=== PATIENT | male | born 1980 | race African-American/Black ===

== ENCOUNTER 2021-07-17 13:58 | Observation (INO) ==
[2021-07-17 14:19] LABS: Basophils # (auto) 0.04 K/uL (0-0.2); Basophils % (auto) 0.5 %; Eosinophils # (auto) 0.18 K/uL (0-0.5); Eosinophils % (auto) 2.3 %; Hematocrit (blood only) 44.1 % (42-52); Hemoglobin 14.7 g/dL (14.0-18.0); Immature Granulocytes # (auto) 0.01 K/uL (0.00-0.02); Immature Granulocytes % (auto) 0.1 %; Lymphocytes # (auto) 2.76 K/uL (1.2-3.4); Lymphocytes % (auto) 35.4 %; Mean Corpuscular Hemoglobin 29.3 pg (25-34); Mean Corpuscular Hgb Conc 33.3 g/dL (32-36); Mean Platelet Volume 10.8 fL (7.4-10.4); Monocytes # (auto) 0.62 K/uL (0.11-0.59); Monocytes % (auto) 7.9 %; Neutrophils # (auto) 4.19 K/uL (1.4-6.5); Neutrophils % (auto) 53.8 %; Platelet Count 230 K/uL (130-400); RDW Standard Deviation 41.7 fL (36.4-46.3); Red Blood Count 5.01 M/uL (4.7-6.1)
[2021-07-17] MEDS ORDERED: NITROGLYCERIN SL 0.4 MG/TAB TAB SL STA (14:30)
[2021-07-17 14:33] LABS: Partial Thromboplastin Time 27.3 Seconds (21.0-31.0); Prothrombin Time 10.3 Seconds (9.0-12.0)
[2021-07-17 14:44] LABS: Alanine Aminotransferase 33 (12-78); Albumin Level 3.7 gm/dl (3.4-5.0); Aspartate Aminotransferase 18 U/L (15-37); BUN Creatinine Ratio 8.3 (10-20); Blood Urea Nitrogen 9 mg/dl (7-18); Carbon Dioxide 26 mmol/L (21-32); Chloride 108 mmol/L (98-107); Est GFR (African American) 95.8 ml/min; Est GFR (Non-African American) 82.7 ml/min; Glucose 106 mg/dl (70-99); Potassium 4.4 mmol/L (3.5-5.1); Sodium 138 mmol/L (136-145)
--- NOTE | 2021-07-17 14:44 | XRay Report ---
XR chest 1V portable CLINICAL HISTORY: Chest Pain. COMPARISON STUDY: No previous studies for comparison. TECHNIQUE: 1 view of the chest FINDINGS: Single frontal view of the chest demonstrates the cardiomediastinal silhouette to be within normal li mits. There is a decreased inspiratory effort with elevation of the hemidiaphragms and crowding of th e bronchovascular markings at the lung bases and centrally. The lungs are clear of alveolar opacities . There is no evidence for pleural effusion. There is no evidence for vascular congestion. There is n o acute osseous pathology. IMPRESSION: There is a decreased inspiratory effort with otherwise no acute chest disease. ACT 112: Negative or not required by law. Electronically signed by: Misael Ya M.D. 07/17/2021 2:43 PM
[2021-07-17 14:47] LABS: Albumin Globulin Ratio 1.1 (0.9-2); Alkaline Phosphatase 42 U/L (45-117); Bilirubin,Total 0.3 mg/dl (0.2-1); Globulin 3.4 gm/dl (2.5-4.0); Total Protein 7.1 gm/dl (6.4-8.2); Troponin I < 0.015 ng/ml (0-0.045)
[2021-07-17 14:53] LABS: D Dimer 250 ug/L FEU (0-500)
--- NOTE | 2021-07-17 14:55 | Emergency Department Note ---
Impression & Plan Atypical chest pain, Abnormal EKG ED Provider Note NAME: BRYANT [id number] JOSE AGE: 41 SEX: M : 1980 ARRIVES VIA: Ambulance INFORMANT: Patient, ED PROVIDER(S): Eduar Tolliver MD Chief Complaint: Chest pain HPI: Patient does present from [facility] due to concern for chest pain that is left-sided and nonradiating. The patient states is worse with inspiration 8 out of 10 in nature. Triage was concerned as the patient's initial EKG read as a possible STEMI. Repeats did show elevation in aVL but not in contiguous leads. Patient denies any obvious exertional symptoms or nausea or vomiting. Patient has no known medical problems with the exception of some constipation does take mirtazapine for sleep. Patient is vaccinated for Covid. He does use tobacco. The patient denies any recent falls or trauma. Patient denies any fevers or chills or leg swelling. No recent surgeries hospitalizations or procedures. The patient is not taking anything for his pain other than the aspirin prior to arrival via EMS. Patient is unsure whether not this improved his symptoms. ROS: See HPI for pertinent positives and negatives. A total of 10 systems were reviewed and otherwise negative. Past medical history: See below Surgical history: See below Social history: See below Physical Exam: GENERAL: NAD, wearing a mask, non-toxic. EYE EXAM: Normal conjunctiva. PERRL, no anisocoria and EOM's grossly intact w/o pain. NECK: Supple, no nuchal rigidity, no adenopathy, non-tender. No signs of meningismus. LUNGS: Clear to auscultation. Normal chest wall mechanics. HEART: NSR, no MRG. ABDOMEN: Abdomen soft, non-tender, normo-active bowel sounds, no masses, no rebound or guarding. BACK: No CVA TTP. SKIN: No rashes and no bruising. UPPER EXTREMITIES: Upper extremities are grossly normal. LOWER EXTREMITIES: Grossly normal, no edema. Negative Homans' sign bilaterally. NEURO EXAM: A&O x3, cranial nerves II-XII grossly intact, normal speech, moves all 4 extremities on command w/o issue. Differential diagnoses: Cardiac ischemia, aortic dissection, pulmonary embolism, pneumothorax, pneumonia, pericarditis, myocarditis, esophageal rupture, GERD, cholecystitis, pancreatitis, musculoskeletal, as well as other pathologies. Course: Patient was seen and evaluated the bedside. Full history physical exam was performed. EKG interpreted by me Normal sinus rhythm, rate of 72, normal intervals, left axis deviation, elevation in aVL but not in contiguous leads. Slight depression in lead III and aVF. Repeat EKG interpreted by me Normal sinus rhythm, rate of 69, normal intervals, left axis deviation, slight elevation in aVL but not in contiguous leads depression in 3 and aVF. Unchanged from comparison EKG completed earlier today. Imaging Studies: See Below Cardiac monitoring: An order was placed for continuous cardiac monitoring. The monitor shows a rate of 78 with sinus rhythm. MDM: Patient did present due to concern for chest pain. The patient did state it was pleuritic in nature. Patient's EKG did show elevation in aVL and depression in 3 but not in contiguous leads. Patient's history does not necessarily centrally cardiac but no prior EKGs for comparison. Old work was obtained and I did have asked that the patient be roomed. The patient was ordered nitro as the patient already received aspirin. Patient has a normal white count H&H and platelet count. Kidney function is unremarkable. Troponin not detectable. D-dimer was also ordered. Chest x-ray does not show any acute disease. The patient did not have significant improvement in his pain after nitro. Toradol and Tylenol were ordered. Given the patient's unknown baseline EKG given the atypical chest pain believe the patient would be reasonable for inpatient observation treatment and trending of cardiac enzymes. I did speak the on-call hospitalist Rosemarie Niño PA-C. The patient was admitted to the medicine service by Dr. Mancia. Past Med/Surg History Medical History (Updated 07/17/21 @ 17:54 by Eduar Tolliver MD) Constipation Sleep trouble Surgical History (Updated 07/17/21 @ 16:41 by Jasmine Niño PA-C) History of ankle surgery Family History (Updated 07/17/21 @ 16:41 by Jasmine Niño PA-C) Mother Diabetes Sister Diabetes Denies family history of Coronary heart disease Social History Smoking Status: Former smoker Tobacco Type: Cigarettes Preferred Language: Belarusian Immunizations: Vaccinated for COVID-19 Allergies Allergies Allergy/AdvReac Type Severity Reaction Status Date / Time No Known Allergies Allergy Unverified 07/17/21 15:59 Home Meds Home Medications Medication Instructions Recorded Confirmed docusate sodium 100 mg capsule 100 mg PO DAILY 07/17/21 07/17/21 ibuprofen 600 mg tablet 600 mg PO TID 07/17/21 07/17/21 mirtazapine 30 mg tablet 30 mg PO HS 07/17/21 07/17/21 Results & Data (ED) Vital Signs Vital Signs - 24 hr 07/17/21 14:04 07/17/21 15:24 Temperature 36.7 C Temperature Source Temporal Artery Scan Pulse Rate 79 Pulse Rate [Apical] 82 Respiratory Rate 18 16 Blood Pressure 139/82 Blood Pressure [Left Arm] 135/90 Blood Pressure Mean 101 Blood Pressure Mean [Left Arm] 105 Pulse Oximetry 96 96 Oxygen Delivery Method Room Air Room Air Sepsis Recent Fever Within 48 Hours No Sepsis New/Unexplained Change in Mental Status No Sepsis Action Taken by Nursing No Action Required Home Medications Current Medication List: was personally reviewed by me Laboratory Data Attestation: I reviewed the patient's lab results. Result diagrams: 07/17/21 14:10 07/17/21 14:10 Lab Results 07/17/21 07/17/21 07/17/21 Range/Units 14:10 14:10 14:10 WBC 7.80 (4.8-10.8) K/uL RBC 5.01 (4.7-6.1) M/uL Hgb 14.7 (14.0-18.0) g/dL Hct 44.1 (42-52) % MCV 88.0 (80-100) fL MCH 29.3 (25-34) pg MCHC 33.3 (32-36) g/dL RDW Std Deviation 41.7 (36.4-46.3) fL RDW Coeff of Marlen 13.0 (11.5-14.5) % Plt Count 230 (130-400) K/uL MPV 10.8 H (7.4-10.4) fL Immature Gran % (Auto) 0.1 % Neut % (Auto) 53.8 % Lymph % (Auto) 35.4 % Rich % (Auto) 7.9 % Eos % (Auto) 2.3 % Baso % (Auto) 0.5 % Neut # (Auto) 4.19 (1.4-6.5) K/uL Lymph # (Auto) 2.76 (1.2-3.4) K/uL Rich # (Auto) 0.62 H (0.11-0.59) K/uL Eos # (Auto) 0.18 (0-0.5) K/uL Baso # (Auto) 0.04 (0-0.2) K/uL Immature Gran # (Auto) 0.01 (0.00-0.02) K/uL PT 10.3 (9.0-12.0) Seconds INR 1.0 (0.9-1.1) APTT 27.3 (21.0-31.0) Seconds PTT Ratio 1.0 D-Dimer 250 (0-500) ug/L FEU Sodium 138 (136-145) mmol/L Potassium 4.4 (3.5-5.1) mmol/L Chloride 108 H (98-107) mmol/L Carbon Dioxide 26 (21-32) mmol/L Anion Gap 4.0 (3-11) BUN 9 (7-18) mg/dl Creatinine 1.09 (0.6-1.4) mg/dl Est Cr Clr Drug Dosing Not Reportable Est GFR ( Amer) 95.8 ml/min Est GFR (Non-Af Amer) 82.7 ml/min BUN/Creatinine Ratio 8.3 L (10-20) Glucose 106 H (70-99) mg/dl Calcium 9.0 (8.5-10.1) mg/dl Total Bilirubin 0.3 (0.2-1) mg/dl AST 18 (15-37) U/L ALT 33 (12-78) Alkaline Phosphatase 42 L (45-117) U/L Troponin I < 0.015 (0-0.045) ng/ml Total Protein 7.1 (6.4-8.2) gm/dl Albumin 3.7 (3.4-5.0) gm/dl Globulin 3.4 (2.5-4.0) gm/dl Albumin/Globulin Ratio 1.1 (0.9-2) Lipase (73-393) U/L Specimen Hemolysis SARS-CoV-2, RNA, NAAT (NEGATIVE) 07/17/21 07/17/21 07/17/21 Range/Units 14:10 14:10 15:34 WBC (4.8-10.8) K/uL RBC (4.7-6.1) M/uL Hgb (14.0-18.0) g/dL Hct (42-52) % MCV (80-100) fL MCH (25-34) pg MCHC (32-36) g/dL RDW Std Deviation (36.4-46.3) fL RDW Coeff of Marlen (11.5-14.5) % Plt Count (130-400) K/uL MPV (7.4-10.4) fL Immature Gran % (Auto) % Neut % (Auto) % Lymph % (Auto) % Rich % (Auto) % Eos % (Auto) % Baso % (Auto) % Neut # (Auto) (1.4-6.5) K/uL Lymph # (Auto) (1.2-3.4) K/uL Rich # (Auto) (0.11-0.59) K/uL Eos # (Auto) (0-0.5) K/uL Baso # (Auto) (0-0.2) K/uL Immature Gran # (Auto) (0.00-0.02) K/uL PT (9.0-12.0) Seconds INR (0.9-1.1) APTT (21.0-31.0) Seconds PTT Ratio D-Dimer Cancelled (0-500) ug/L FEU Sodium (136-145) mmol/L Potassium (3.5-5.1) mmol/L Chloride (98-107) mmol/L Carbon Dioxide (21-32) mmol/L Anion Gap (3-11) BUN (7-18) mg/dl Creatinine (0.6-1.4) mg/dl Est Cr Clr Drug Dosing Est GFR ( Amer) ml/min Est GFR (Non-Af Amer) ml/min BUN/Creatinine Ratio (10-20) Glucose (70-99) mg/dl Calcium (8.5-10.1) mg/dl Total Bilirubin (0.2-1) mg/dl AST (15-37) U/L ALT (12-78) Alkaline Phosphatase (45-117) U/L Troponin I (0-0.045) ng/ml Total Protein (6.4-8.2) gm/dl Albumin (3.4-5.0) gm/dl Globulin (2.5-4.0) gm/dl Albumin/Globulin Ratio (0.9-2) Lipase 199 (73-393) U/L Specimen Hemolysis SARS-CoV-2, RNA, NAAT NEGATIVE (NEGATIVE) Administered Medications Discontinued Medications Acetaminophen (Acetaminophen 500 Mg Tab) 1,000 mg PO NOW STA Stop: 07/17/21 15:43 Last Admin: 07/17/21 15:56 Dose: 1,000 mg Documented by: [id number] Ketorolac Tromethamine (Ketorolac Tromethamine 15 Mg/Ml Vial) 10 mg IV NOW ONE Stop: 07/17/21 15:43 Last Admin: 07/17/21 15:56 Dose: 10 mg Documented by: [id number] Nitroglycerin (Nitroglycerin Sl 0.4 Mg/Tab Tab) 0.4 mg SL NOW STA Stop: 07/17/21 14:31 Last Admin: 07/17/21 15:24 Dose: 0.4 mg Documented by: [id number] Imaging Data Radiologist's Impression: Chest X-Ray 07/17/21 14:23 XR chest 1V portable CLINICAL HISTORY: Chest Pain. COMPARISON STUDY: No previous studies for comparison. TECHNIQUE: 1 view of the chest FINDINGS: Single frontal view of the chest demonstrates the cardiomediastinal silhouette to be within normal limits. There is a decreased inspiratory effort with elevation of the hemidiaphragms and crowding of the bronchovascular markings at the lung bases and centrally. The lungs are clear of alveolar opacities. There is no evidence for pleural effusion. There is no evidence for vascular congestion. There is no acute osseous pathology. IMPRESSION: There is a decreased inspiratory effort with otherwise no acute chest disease. ACT 112: Negative or not required by law. Electronically signed by: Misael Ya M.D. 07/17/2021 2:43 PM Discharge Plan Visit Data Chief Complaint: Chest Pain ED Provider: Eduar Tolliver Discharge Problem: Atypical chest pain, Abnormal EKG
[2021-07-17] MEDS ORDERED: ACETAMINOPHEN 500 MG TAB PO STA (15:42)
[2021-07-17] MEDS ORDERED: KETOROLAC TROMETHAMINE 15 MG/ML VIAL IV ONE (15:42)
--- NOTE | 2021-07-17 16:39 | History & Physical Report ---
Date of Service July 17, 2021 Assessment & Plan (1) Left-sided chest pain: Plan: Differential includes pericarditis, AK, aortic dissection, PE, pneumonia, musculoskeletal etiology. PE unlikely with negative D-dimer. Initial troponin negative but unclear if EKG changes are new since no prior to compare to. Pneumonia unlikely with negative CXR, no fever, no leukocytosis. - Observation on telemetry overnight - Serial troponin - Repeat EKG in the AM - Check ECHO - ESR with next lab draw - CTA chest to r/o aortic dissection although less likely - NPO post midnight in case additional intervention needed tomorrow - Check urine drug screen Pt seen and reviewed with attending physician, Dr. Mancia. Plan of care discussed and as outlined above. Denver Niño PA-C Plan: Attending Addendum: .dell care coordinated with LIBORIO Niño please refer to her notes for full details, I agree with her notes patient seen and examined, records reviewed by myself as well on exam, patient seen resting in bed states left sided chest pain is mild- worse with inspiration and movement no dyspnea, palpitations, dizziness no other symptoms VS noted and reviewed oriented x 3 , not in distress, speaks in sentences with no effort nor accessory muscle use normal rate, regular rhythm, no murmurs chest wall: no tenderness clear breath sounds bilaterally non distended, soft, nontender no bipedal edema, erythema, warmth no neuro deficits WBC 7.8 Hg 14.7 Crea 1.09 trop < 0.[address] changes in the anterolateral leads ASSESSMENT AND PLAN ATYPICAL CHEST PAIN CT chest angio: r/o PE, dissection rule out ACS- serial Trop, Echo rule out Pericarditis- check ESR other diagnoses and plan of care as per LIBORIO Mancia MD History of Present Illness Chief Complaint: Chest Pain Primary Care Provider: [facility] This is a 41 y/o male with no signficant PMH who presents to the ED today from [facility] with left-sided chest pain. He reports that the pain woke him from sleep around 6-7 am today. He describes it as localized to the left chest "like something's inside" and denies radiation to jaw or arm. The pain may radiate to his back with certain movements but is not reproducible with pushing on the area. Pain is also worse with deep breathing. Pt denies similar pain previously. No shortness of breath, cough, CABELLO, dizziness, N/V/D, blood in stools, fevers, chills, sweats. Denies prior cardiac hx. No hx HTN, dyslipidemia or diabetes. Pain did not improve with aspirin and nitro - currently same location and severity as when it started. Allergies Allergy/AdvReac Type Severity Reaction Status Date / Time No Known Allergies Allergy Unverified 07/17/21 15:59 Home Medications Medication Instructions Recorded Confirmed Type docusate sodium 100 mg capsule 100 mg PO DAILY 07/17/21 07/17/21 History ibuprofen 600 mg tablet 600 mg PO TID 07/17/21 07/17/21 History mirtazapine 30 mg tablet 30 mg PO HS 07/17/21 07/17/21 History Past Med/Surg History Medical History (Updated 07/17/21 @ 17:54 by Eduar Tolliver MD) Constipation Sleep trouble Surgical History (Updated 07/17/21 @ 16:41 by Jasmine Niño PA-C) History of ankle surgery Family History (Updated 07/17/21 @ 16:41 by Jasmine Niño PA-C) Mother Diabetes Sister Diabetes Denies family history of Coronary heart disease Social History Smoking Status: Smoker, status unknown Tobacco Type: Cigarettes Hx Alcohol Use: No Hx Substance Use: No Preferred Language: Azerbaijani Communication Ability: Effective Manufacturer Agent Required: No Beliefs That Will Affect Care: None Current Living Situation: Other Current Living Situation Comment: fpc Feels Safe at Home: Yes Safety Concerns: Feels Safe At This Time Assistive Devices: Wheelchair Review of Systems Review of Systems: All systems reviewed & are unremarkable except as noted in HPI & below Constitutional: no fever, no chills, no sweats, no fatigue and no anorexia Eyes: no diplopia and no worsening vision Ear, Nose, Mouth, Throat: no nasal congestion, no nasal discharge and no sore throat Respiratory: + pain on inspiration; no cough, no dyspnea on exertion and no wheezing Cardiovascular: + chest pain; no dyspnea on exertion, no palpitations, no syncope and no edema Gastrointestinal: no abdominal pain, no heartburn, no nausea, no vomiting, no diarrhea/loose stools and no blood in stools Genitourinary: no dysuria or no hematuria Musculoskeletal: no back pain, no neck pain and no joint pain Integumentary: no rash Neurologic: no generalized weakness, no dizziness and no headache(s) Psychiatric: + abnormal sleep pattern Physical Exam Constitutional: well developed and well nourished; no acute distress Eyes: + anicteric sclerae Neck: trachea midline Respiratory: no respiratory distress and no labored breathing Auscultation: lungs clear to auscultation bilaterally; no rales, no rhonchi and no wheezes Cardiovascular: Rate/Rhythm: regular rate and regular rhythm Heart Sounds: no gallop, no murmur and no cardiac rub Vessels: radial pulses present Gastrointestinal (Abdomen): Inspection/Auscultation: normal bowel sounds; abdomen not distended Percussion/Palpation: abdomen soft; abdomen nontender Musculoskeletal: Head/Neck/Chest: normocephalic, head atraumatic and neck supple Chest wall without tenderness to palpation Skin: no jaundice Neurologic: moves all extremities; no focal motor deficits Psychiatric: A+Ox3, euthymic affect Results & Data Results & Data ([facility]) Vital Signs (Past 12 Hours) Vital Signs Temp Pulse Pulse Resp BP BP Pulse Ox 07/17/21 15:24 82 16 135/90 96 07/17/21 14:04 36.7 C 79 18 139/82 96 Laboratory Results Laboratory Results - last 24 hr 07/17/21 07/17/21 07/17/21 14:10 14:10 14:10 WBC 7.80 RBC 5.01 Hgb 14.7 Hct 44.1 MCV 88.0 MCH 29.3 MCHC 33.3 RDW Std Deviation 41.7 RDW Coeff of Marlen 13.0 Plt Count 230 MPV 10.8 H Immature Gran % (Auto) 0.1 Neut % (Auto) 53.8 Lymph % (Auto) 35.4 [place] % (Auto) 7.9 Eos % (Auto) 2.3 Baso % (Auto) 0.5 Neut # (Auto) 4.19 Lymph # (Auto) 2.76 [place] # (Auto) 0.62 H Eos # (Auto) 0.18 Baso # (Auto) 0.04 Immature Gran # (Auto) 0.01 PT 10.3 INR 1.0 APTT 27.3 PTT Ratio 1.0 D-Dimer 250 Sodium 138 Potassium 4.4 Chloride 108 H Carbon Dioxide 26 Anion Gap 4.0 BUN 9 Creatinine 1.09 Est Cr Clr Drug Dosing Not Reportable Est GFR ( Amer) 95.8 Est GFR (Non-Af Amer) 82.7 BUN/Creatinine Ratio 8.3 L Glucose 106 H Calcium 9.0 Total Bilirubin 0.3 AST 18 ALT 33 Alkaline Phosphatase 42 L Troponin I < 0.015 Total Protein 7.1 Albumin 3.7 Globulin 3.4 Albumin/Globulin Ratio 1.1 Lipase Specimen Hemolysis SARS-CoV-2, RNA, NAAT 07/17/21 07/17/21 07/17/21 14:10 14:10 15:34 WBC RBC Hgb Hct MCV MCH MCHC RDW Std Deviation RDW Coeff of Marlen Plt Count MPV Immature Gran % (Auto) Neut % (Auto) Lymph % (Auto) [place] % (Auto) Eos % (Auto) Baso % (Auto) Neut # (Auto) Lymph # (Auto) [place] # (Auto) Eos # (Auto) Baso # (Auto) Immature Gran # (Auto) PT INR APTT PTT Ratio D-Dimer Cancelled Sodium Potassium Chloride Carbon Dioxide Anion Gap BUN Creatinine Est Cr Clr Drug Dosing Est GFR ( Amer) Est GFR (Non-Af Amer) BUN/Creatinine Ratio Glucose Calcium Total Bilirubin AST ALT Alkaline Phosphatase Troponin I Total Protein Albumin Globulin Albumin/Globulin Ratio Lipase 199 Specimen Hemolysis SARS-CoV-2, RNA, NAAT NEGATIVE Diagnostic Findings Chest X-ray 07/17/21 - IMPRESSION: There is a decreased inspiratory effort with otherwise no acute chest disease. Medications Administered Discontinued Medications Acetaminophen (Acetaminophen 500 Mg Tab) 1,000 mg PO NOW STA Stop: 07/17/21 15:43 Last Admin: 07/17/21 15:56 Dose: 1,000 mg Documented by: [id number] Ketorolac Tromethamine (Ketorolac Tromethamine 15 Mg/Ml Vial) 10 mg IV NOW ONE Stop: 07/17/21 15:43 Last Admin: 07/17/21 15:56 Dose: 10 mg Documented by: [id number] Nitroglycerin (Nitroglycerin Sl 0.4 Mg/Tab Tab) 0.4 mg SL NOW STA Stop: 07/17/21 14:31 Last Admin: 07/17/21 15:24 Dose: 0.4 mg Documented by: [id number] Code Status & VTE Plan VTE Prophylaxis Plan VTE Prophylaxis will be ordered: Yes
--- NOTE | 2021-07-17 16:52 | Electrocardiogram Report ---
Test Reason : Blood Pressure : / mmHG Vent. Rate : 069 BPM Atrial Rate : 069 BPM P-R Int : 154 ms QRS Dur : 112 ms QT Int : 368 ms P-R-T Axes : 054 -57 009 degrees QTc Int : 394 ms Normal sinus rhythm Left axis deviation Incomplete right bundle branch block Abnormal ECG When compared with ECG of 17-JUL-2021 14:22, (unconfirmed) No significant change was found Confirmed by Mika Parsons ([id number]) on 07/17/2021 4:51:47 PM Referred By: [facility] Confirmed By:Mike Parsons
[2021-07-17] MEDS ORDERED: NITROGLYCERIN SL 0.4 MG/TAB TAB SL PRN (17:53)
[2021-07-17] MEDS ORDERED: SODIUM CHLORIDE 0.9% 1000ML 1,000 ML IV SCH (17:53)
[2021-07-17] MEDS ORDERED: OPTIRAY 320 125ml IV ONE (18:05)
[2021-07-17] MEDS: ACETAMINOPHEN 325 MG TAB PO SCH (18:11)
--- NOTE | 2021-07-17 18:21 | CT Scan Report ---
CT ANGIOGRAM OF THE CHEST COMBO CLINICAL HISTORY: Atypical/left-sided chest pain. COMPARISON STUDY: Chest x-ray dated 07/17/2021. TECHNIQUE: Before and following the IV administration of 120 cc of Optiray 320, CT angiogram of the c hest was performed from the thoracic inlet to the upper abdomen utilizing the dissection protocol. Im ages are reviewed in the axial, sagittal, and coronal planes. 3-D MIPS images are created and assesse d. IV contrast was administered without complication. A dose lowering technique was utilized adherin g to the principles of ALARA. CT DOSE: 857.49 mGy.cm FINDINGS: Thyroid: Imaged portions of the thyroid gland are normal in size and attenuation. Thoracic aorta: No intramural hematoma is seen on the unenhanced series. The thoracic aorta is normal in caliber and demonstrates standard 3-vessel arch anatomy. No dissection is seen. The arch vessels are widely patent. Pulmonary vasculature: The pulmonary trunk is normal in caliber. There are no filling defects identif ied in the main, lobar, or segmental pulmonary arteries to suggest pulmonary embolus. Heart: The heart is normal in size and without pericardial effusion. Lungs and pleural spaces: Mild emphysematous change is seen at the apices. There is dependent atelect asis. No airspace consolidation or pleural effusion is identified. The trachea and central airways ar e clear. Mediastinum: There is no mediastinal lymphadenopathy. Mary: Clear. Axillae: There is no axillary lymphadenopathy. Upper abdomen: Partially visualized upper abdominal viscera is within normal limits. Skeletal structures: No lytic or blastic bony lesions are seen. IMPRESSION: 1. Unremarkable CT angiogram of the thoracic aorta. 2. There is no evidence of pulmonary embolus in the main, lobar, or segmental pulmonary arteries. 3. There is no airspace consolidation or pleural effusion. ACT 112: Negative or not required by law. Electronically signed by: Georgi Garcia M.D. 07/17/2021 6:19 PM
[2021-07-17] MEDS: MIRTAZAPINE TAB 15 MG TAB PO SCH (20:57)
[2021-07-17] MEDS: HEPARIN SOD 5,000 UNIT/0.5 ML VIAL SQ SCH (21:00)
[2021-07-17 23:49] LABS: Amphetamines+Metham, Urine Neg (Neg); Barbiturates, Urine Neg (Neg); Benzodiazepine, Urine Neg (Neg); Cocaine, Urine Neg (Neg); MDMA (Ecstacy), Urine Neg (Neg); Methadone, Urine Neg (Neg); Opiate, Urine Neg (Neg); Phencyclidine, Urine Neg (Neg)
[2021-07-18 01:50] LABS: Basophils # (auto) 0.04 K/uL (0-0.2); Basophils % (auto) 0.5 %; Eosinophils # (auto) 0.22 K/uL (0-0.5); Eosinophils % (auto) 2.5 %; Hematocrit (blood only) 42.7 % (42-52); Hemoglobin 14.1 g/dL (14.0-18.0); Immature Granulocytes # (auto) 0.01 K/uL (0.00-0.02); Immature Granulocytes % (auto) 0.1 %; Lymphocytes % (auto) 39.9 %; Mean Corpuscular Volume 87.9 fL (80-100); Mean Platelet Volume 10.6 fL (7.4-10.4); Monocytes # (auto) 0.56 K/uL (0.11-0.59); Monocytes % (auto) 6.4 %; Neutrophils # (auto) 4.45 K/uL (1.4-6.5); Neutrophils % (auto) 50.6 %; Platelet Count 219 K/uL (130-400); RDW Standard Deviation 41.6 fL (36.4-46.3); Red Blood Count 4.86 M/uL (4.7-6.1); White Blood Count 8.78 K/uL (4.8-10.8)
[2021-07-18 02:11] LABS: Alanine Aminotransferase 27 (12-78); Albumin Level 3.4 gm/dl (3.4-5.0); Aspartate Aminotransferase 13 U/L (15-37); BUN Creatinine Ratio 9.4 (10-20); Blood Urea Nitrogen 10 mg/dl (7-18); Calcium 8.6 mg/dl (8.5-10.1); Carbon Dioxide 27 mmol/L (21-32); Chloride 107 mmol/L (98-107); Creatinine Clr Calc Pharmacy 116.3 ml/min; Est GFR (African American) 101.4 ml/min; Est GFR (Non-African American) 87.5 ml/min; Glucose 85 mg/dl (70-99); Potassium 3.9 mmol/L (3.5-5.1); Sodium 138 mmol/L (136-145)
[2021-07-18 02:16] LABS: Albumin Globulin Ratio 1.1 (0.9-2); Alkaline Phosphatase 38 U/L (45-117); Bilirubin,Total 0.4 mg/dl (0.2-1); Chol HDL Ratio 4; Cholesterol 160 mg/dl (0-200); Globulin 3.1 gm/dl (2.5-4.0); HDL Cholesterol 41 mg/dl; LDL Cholesterol Calculated 94 mg/dl; Total Protein 6.5 gm/dl (6.4-8.2); Triglycerides 125 mg/dl (0-150); Troponin I < 0.015 ng/ml (0-0.045); VLDL Cholesterol 25 mg/dl
[2021-07-18] MEDS: ACETAMINOPHEN 325 MG TAB PO SCH ×3 (02:24→10:06)
[2021-07-18] MEDS: HEPARIN SOD 5,000 UNIT/0.5 ML VIAL SQ SCH ×3 (06:01→21:35)
[2021-07-18] MEDS ORDERED: ACETAMINOPHEN 500 MG TAB ONE ×2 (09:21→10:04)
[2021-07-18] MEDS: traMADol HCL 50 MG TABLET PO PRN ×2 (10:07→16:24)
--- NOTE | 2021-07-18 17:39 | Electrocardiogram Report ---
Test Reason : Blood Pressure : / mmHG Vent. Rate : 072 BPM Atrial Rate : 072 BPM P-R Int : 146 ms QRS Dur : 106 ms QT Int : 344 ms P-R-T Axes : 065 -66 020 degrees QTc Int : 376 ms Normal sinus rhythm Incomplete right bundle branch block Left anterior fascicular block Abnormal ECG When compared with ECG of 17-JUL-2021 14:18, (unconfirmed) No significant change was found Confirmed by Mika Parsons ([id number]) on 07/18/2021 5:39:19 PM Referred By: [facility] Confirmed By:Mike Parsons
--- NOTE | 2021-07-18 17:50 | Electrocardiogram Report ---
Test Reason : Blood Pressure : / mmHG Vent. Rate : 062 BPM Atrial Rate : 062 BPM P-R Int : 162 ms QRS Dur : 120 ms QT Int : 378 ms P-R-T Axes : 051 -57 -08 degrees QTc Int : 383 ms Normal sinus rhythm Left anterior fascicular block Nonspecific T wave abnormality Abnormal ECG When compared with ECG of 17-JUL-2021 16:02, Right bundle branch block is no longer Present Confirmed by Mika Parsons ([id number]) on 07/18/2021 5:50:31 PM Referred By: [facility] Confirmed By:Mike Parsons
--- NOTE | 2021-07-18 18:46 | Hospitalist Progress Note ---
Date of Service July 18, 2021 Assessment & Plan (1) Left-sided chest pain: Plan: Acute coronary syndrome ruled out Troponin level x3 - EKG nonspecific ST-T wave changes in the anterolateral leads Echocardiogram: No left ventricular wall motion abnormalities Normal LV chamber size with mild concentric LVH Normal LV systolic function EF 55 to 60% No segmental left ventricular wall motion abnormalities are noted Apical echoes consistent with trabeculae are noted. 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 Unremarkable CT angiogram of the thoracic aorta. 2. There is no evidence of pulmonary embolus in the main, lobar, or segmental pulmonary arteries. 3. There is no airspace consolidation or pleural effusion. Left-sided chest pain, atypical, likely secondary to musculoskeletal pain versus pleurisy Recommend pain management with NSAIDs such as ibuprofen Encouraged to increase water intake to prevent kidney injury as patient received IV contrast with his CT chest Admission and Anticipated Discharge Date Admission Date: July 17, 2021 Subjective ff up for left sided chest pain Review of Systems Review of Systems: all noted and negative except for above Physical Exam Physical Exam: General- oriented x 3, not in distress, speaks in sentences with no effort or accessory muscle use Eyes- anicteric Neck- no JVD Lungs- clear breath sounds bilaterally, no rales/wheezes Heart- normal rate, regular rhythm; no murmurs Abdomen- normal bowel sounds, nondistended, soft, nontender Extremities- no pretibial edema, no calf tenderness Neuro- alert, oriented x 3; no gross focal neurologic deficits Skin- warm & dry Results & Data Results & Data ([facility]) Vital Signs (Past 12 Hours) Vital Signs Temp Pulse Resp BP Pulse Ox 07/18/21 08:00 36.7 C 80 16 121/88 97
--- NOTE | 2021-07-18 18:54 | Discharge Summary ---
Date of Service July 18, 2021 Admission HPI Per Admitting Provider This is a 41 y/o male with no signficant PMH who presents to the ED today from [facility] with left-sided chest pain. He reports that the pain woke him from sleep around 6-7 am today. He describes it as localized to the left chest "like something's inside" and denies radiation to jaw or arm. The pain may radiate to his back with certain movements but is not reproducible with pushing on the area. Pain is also worse with deep breathing. Pt denies similar pain previously. No shortness of breath, cough, CABELLO, dizziness, N/V/D, blood in stools, fevers, chills, sweats. Denies prior cardiac hx. No hx HTN, dyslip idemia or diabetes. Pain did not improve with aspirin and nitro - currently same location and severity as when it started. Admission Exam (Per Admitting) Constitutional Constitutional: well developed and well nourished; no acute distress Eyes: + anicteric sclerae Neck: trachea midline Respiratory: no respiratory distress and no labored breathing Auscultation: lungs clear to auscultation bilaterally; no rales, no rhonchi and no wheezes Cardiovascular: Rate/Rhythm: regular rate and regular rhythm Heart Sounds: no gallop, no murmur and no cardiac rub Vessels: radial pulses present Gastrointestinal (Abdomen): Inspection/Auscultation: normal bowel sounds; abdomen not distended Percussion/Palpation: abdomen soft; abdomen nontender Musculoskeletal: Head/Neck/Chest: normocephalic, head atraumatic and neck supple Chest wall without tenderness to palpation Skin: no jaundice Neurologic: moves all extremities; no focal motor deficits Psychiatric: A+Ox3, euthymic affect Discharge Data Consultations 07/17/21 16:21 ED Decision to Admit Stat Procedures Performed CT ANGIOGRAM OF THE CHEST COMBO CLINICAL HISTORY: Atypical/left-sided chest pain. COMPARISON STUDY: Chest x-ray dated 07/17/2021. TECHNIQUE: Before and following the IV administration of 120 cc of Optiray 320, CT angiogram of the chest was performed from the thoracic inlet to the upper abdomen utilizing the dissection protocol. Images are reviewed in the axial, sagittal, and coronal planes. 3-D MIPS images are created and assessed. IV contrast was administered without complication. A dose lowering technique was utilized adhering to the principles of ALARA. CT DOSE: 857.49 mGy.cm FINDINGS: Thyroid: Imaged portions of the thyroid gland are normal in size and attenuation. Thoracic aorta: No intramural hematoma is seen on the unenhanced series. The thoracic aorta is normal in caliber and demonstrates standard 3-vessel arch anatomy. No dissection is seen. The arch vessels are widely patent. Pulmonary vasculature: The pulmonary trunk is normal in caliber. There are no filling defects identified in the main, lobar, or segmental pulmonary arteries to suggest pulmonary embolus. Heart: The heart is normal in size and without pericardial effusion. Lungs and pleural spaces: Mild emphysematous change is seen at the apices. There is dependent atelectasis. No airspace consolidation or pleural effusion is identified. The trachea and central airways are clear. Mediastinum: There is no mediastinal lymphadenopathy. Mary: Clear. Axillae: There is no axillary lymphadenopathy. Upper abdomen: Partially visualized upper abdominal viscera is within normal limits. Skeletal structures: No lytic or blastic bony lesions are seen. IMPRESSION: 1. Unremarkable CT angiogram of the thoracic aorta. 2. There is no evidence of pulmonary embolus in the main, lobar, or segmental pulmonary arteries. 3. There is no airspace consolidation or pleural effusion. ACT 112: Negative or not required by law. Hospital Course (1) Left-sided chest pain: Acute coronary syndrome ruled out Troponin level x3 - EKG nonspecific ST-T wave changes in the anterolateral leads Echocardiogram: No left ventricular wall motion abnormalities Normal LV chamber size with mild concentric LVH Normal LV systolic function EF 55 to 60% No segmental left ventricular wall motion abnormalities are noted Apical echoes consistent with trabeculae are noted. 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 Moon: Patient needs a cardiac MRI to rule out apical thrombi: Patient needs to go to [facility] for cardiac MRI Anticoagulation not indicated at this time Acute pericarditis ruled out ESR within normal limits No signs of pericarditis on echocardiogram Acute pulmonary embolism and aortic dissection ruled out CT chest angio: 1. Unremarkable CT angiogram of the thoracic aorta. 2. There is no evidence of pulmonary embolus in the main, lobar, or segmental pulmonary arteries. 3. There is no airspace consolidation or pleural effusion. Left-sided chest pain, atypical, likely secondary to musculoskeletal pain versus pleurisy Recommend pain management with NSAIDs such as ibuprofen Encouraged to increase water intake to prevent kidney injury as patient received IV contrast with his CT chest
[2021-07-18] MEDS: MIRTAZAPINE TAB 15 MG TAB PO SCH (19:52)
--- NOTE | 2021-07-20 18:32 | Electrocardiogram Report ---
Test Reason : Blood Pressure : / mmHG Vent. Rate : 081 BPM Atrial Rate : 081 BPM P-R Int : 136 ms QRS Dur : 088 ms QT Int : 338 ms P-R-T Axes : 059 -66 002 degrees QTc Int : 392 ms Poor data quality, interpretation may be adversely affected Normal sinus rhythm Left axis deviation ST elevation consider lateral injury or acute infarct Abnormal ECG No previous ECGs available Confirmed by Mika Parsons ([id number]) on 07/20/2021 6:31:53 PM Referred By: [facility] Confirmed By:Mike Parsons
== END 2021-07-18 23:00 ==
LOC: ED 13:58 → EDINP 13:58